=== PATIENT | male | born 1945 | race Two or more races ===

== ENCOUNTER → 2023-05-24 | Emergency (ER) | payer OTHER ==
[~2023-05-24] VITALS: Ht 175.3 cm; Wt 81.6 kg
[~2023-05-24] MED LIST: ACETAMINOOPHEN-1 TAB PO; AMARIL PO; CIPRO750 MG PO; CLONAZEPAM1 MG PO; DOCUSATE SODIU100 MG PO; LOTREL 5-10 MG1 CAP; METFORMIN HCL500 MG PO; NEURONTIN PO; PERCOCET 5/3251 TAB PO; TOPROL XL25 M1; ZOCOR20 MG; [UNRECOGNIZED DRUG - OTHER]
[2023-05-24 18:00] LABS: PH,URINE 5.5 (5.0-8.0); URINE APPEARANCE Clear; URINE BILIRRUBIN Negative (NEGATIVE); URINE BLOOD Large; URINE COLOR Yellow; URINE GLUCOSE Negative (NEGATIVE); URINE LEUKOCYTE Negative; URINE NITRATE Negative; URINE PROTEIN 30 (NEGATIVE); URINE UROBILINOGEN 0.2 E.U./dl
[2023-05-24 18:04] LABS: URINE BACTERIA 2.5 uL (0.0-1933); URINE EPITHELIAL CELLS 6.7 uL (0.0-38.8); URINE RBC 1.7 uL (0.0-20.8); URINE WBC 1.6 uL (0.0-23.2)
[2023-05-24 18:33] LABS: HEMATOCRIT 40.3 % (39.0-48.0); HEMOGLOBIN 13.6 g/dL (13-16.00); MEAN CELL VOLUME 90.6 fL (80.0-100.00); MEAN CORPUSCULAR HEMOGLOBIN 30.6 pg (27.00-32.0); MEAN CORPUSCULAR HGB CONC 33.8 g/dl (32.0-36.0); PLATELET COUNT 198 K/uL (150-450); RED BLOOD COUNT 4.45 M/uL (4.00-6.00)
[2023-05-24 18:59] LABS: ALBUMIN 3.1 gm/dL (3.4-5.0); BILIRUBIN TOTAL 0.56 mg/dL (0.3-1.2); CALCIUM 8.4 mg/dL (8.5-10.1); CREATININE SERUM 0.83 mg/dL (0.70-1.30); GFR 89.14; GLOBULINA 3.6 G/DL (2.4-3.5); POTASSIUM 3.16 mEq/L (3.5-5.1); TOTAL PROTEIN 6.7 gm/dL (6.4-8.2)
== END | disposition home or self-care (01) ==
LOC: ER 14:50
PROVIDERS: General Practice
DX: U07.1 COVID-19 (principal); R50.9 Fever, unspecified; I10 Essential (primary) hypertension; E11.9 Type 2 diabetes mellitus without complications; Z79.84 Long term (current) use of oral hypoglycemic drugs